=== PATIENT | female | born 1995 | race American Indian/Alaskan Native ===

== ENCOUNTER 2018-05-01 22:23 | Emergency (ER) | payer BC ==
[2018-05-01 23:07] VITALS: BP 111/78
[2018-05-02 00:33] LABS: Amorphous Crystals,Urine Few; Bilirubin,Urine NEG (Negative); Blood,Urine NEG (Negative); Color,Urine Yellow (Yellow); Mucus,Urine FEW /HPF; Protein,Urine <15 mg/dL mg/dL (Negative); Urobilinogen,Urine < 2.0 mg/dL (<2.0)
[2018-05-02 00:34] LABS: HCG Qualitative,Urine Negative (Negative)
== END 2018-05-02 02:30 | disposition left against medical advice (07) ==
LOC: ED 22:23
DX: N89.8 Other specified noninflammatory disorders of vagina (principal); Z53.21 Procedure and treatment not carried out due to patient leaving prior to being seen by health care provider
CPT/HCPCS: 81001; 81025

== ENCOUNTER 2018-11-18 18:07 | Emergency (ER) | payer SELFPAY ==
--- NOTE | 2018-11-18 18:11 | Emergency Department Report ---
Blank Doc - Documentation Documentation: 23-year-old female that presents with vaginal bleeding and pelvic cramping. This initial assessment/diagnostic orders/clinical plan/treatment(s) is/are subject to change based on patient's health status, clinical progression and re- assessment by fellow clinical providers in the ED. Further treatment and workup at subsequent clinical providers discretion. Patient/guardians urged not to elope from the ED as their condition may be serious if not clinically assessed and managed. Initial orders include: 1- Patient sent to [facility] for further evaluation and treatment 2- labs 3- UA 4- US OB
[2018-11-18 18:12] VITALS: BP 126/78
--- NOTE | 2018-11-18 19:20 | Ultrasound Report ---
ULTRASOUND OBSTETRIC INDICATION / CLINICAL INFORMATION: vaginal bleeding/pelvic pain. TECHNIQUE: Transabdominal. COMPARISON: None available. FINDINGS: GESTATIONAL SAC: No evidence of a well-formed gestational sac. YOLK SAC: None EMBRYO/FETUS: None ADNEXA: No significant abnormality. FREE FLUID: None. ADDITIONAL FINDINGS: None. IMPRESSION: 1. No evidence of an intrauterine or extrauterine gestational sac. Endometrial thickness 1.1 cm Signer Name: Vinicio Walter MD Signed: 11/18/2018 7:15 PM Workstation Name: [id number]
--- NOTE | 2018-11-18 19:20 | Ultrasound Report ---
ULTRASOUND OBSTETRIC INDICATION / CLINICAL INFORMATION: vaginal bleeding/pelvic pain. TECHNIQUE: Transabdominal. COMPARISON: None available. FINDINGS: GESTATIONAL SAC: No evidence of a well-formed gestational sac. YOLK SAC: None EMBRYO/FETUS: None ADNEXA: No significant abnormality. FREE FLUID: None. ADDITIONAL FINDINGS: None. IMPRESSION: 1. No evidence of an intrauterine or extrauterine gestational sac. Endometrial thickness 1.1 cm Signer Name: Vinicio Walter MD Signed: 11/18/2018 7:16 PM Workstation Name: [id number]
[2018-11-18 19:33] LABS: Hematocrit 40.2 % (30.3-42.9); Hemoglobin 13.6 gm/dl (10.1-14.3); Mean Corpuscular HGB Conc 34 % (30-34); Mean Corpuscular Volume 88 fl (79-97); Platelet Count 287 K/mm3 (140-440); Red Blood Count 4.56 M/mm3 (3.65-5.03); Red Cell Distribution Width 13.8 % (13.2-15.2)
--- NOTE | 2018-11-18 19:47 | Emergency Department Report ---
HPI - General Chief Complaint: Vaginal Bleeding Time Seen by Provider: 11/18/18 18:10 - HPI HPI: 23 yo with pos preg test at [place] comes to ER with vag bleed. LMP 8-18. g1 ED Past Medical Hx - Past Medical History Previous Medical History?: No - Surgical History Past Surgical History?: No - Social History Smoking Status: Never Smoker Substance Use Type: None ED Review of Systems ROS: Stated complaint: BLEEDING Other details as noted in HPI Comment: All other systems reviewed and negative Physical Exam - Physical Exam Vital Signs: Vital Signs 11/18/18 18:10 Temperature 98.3 F Pulse Rate 88 Respiratory 15 Rate Blood Pressure 126/78 [Left] O2 Sat by Pulse 98 Oximetry Physical Exam: alert and oriented abd snt no cva tenderness s1s2 lungs cta ED Course Vital Signs 11/18/18 18:10 Temperature 98.3 F Pulse Rate 88 Respiratory 15 Rate Blood Pressure 126/78 [Left] O2 Sat by Pulse 98 Oximetry ED Medical Decision Making - Lab Data Result diagrams: 11/18/18 19:02 - Radiology Data Radiology results: report reviewed, image reviewed - Medical Decision Making Lab Results 11/18/18 11/18/18 11/18/18 Range/Units 19:02 19:02 19:02 WBC 4.8 (4.5-11.0) K/mm3 RBC 4.56 (3.65-5.03) M/mm3 Hgb 13.6 (10.1-14.3) gm/dl Hct 40.2 (30.3-42.9) % MCV 88 (79-97) fl MCH 30 (28-32) pg MCHC 34 (30-34) % RDW 13.8 (13.2-15.2) % Plt Count 287 (140-440) K/mm3 Seg Neutrophils % [employer] HCG, Quant 23.91 H (0-4) mIU/mL Urine Bilirubin (Negative) Urine RBC (Auto) (0.0-6.0) /HPF U Epithel Cells (Auto) (0-13.0) /HPF Blood Type O POSITIVE 11/18/18 Range/Units 20:07 WBC (4.5-11.0) K/mm3 RBC (3.65-5.03) M/mm3 Hgb (10.1-14.3) gm/dl Hct (30.3-42.9) % MCV (79-97) fl MCH (28-32) pg MCHC (30-34) % RDW (13.2-15.2) % Plt Count (140-440) K/mm3 Seg Neutrophils % HCG, Quant (0-4) mIU/mL Urine Bilirubin Neg (Negative) Urine RBC (Auto) 14.0 (0.0-6.0) /HPF U Epithel Cells (Auto) 4.0 (0-13.0) /HPF Blood Type Vital Signs 11/18/18 18:10 Temperature 98.3 F Pulse Rate 88 Respiratory 15 Rate Blood Pressure 126/78 [Left] O2 Sat by Pulse 98 Oximetry us noted educated pt and family on dc plan of care. will follow up with obgyn in 48 hours - Differential Diagnosis ro ab Critical care attestation.: If time is entered above; I have spent that time in minutes in the direct care of this critically ill patient, excluding procedure time. ED Disposition Clinical Impression: Threatened , Vaginal bleeding, Disposition: DC-01 TO HOME OR SELFCARE Is pt being admited?: No Does the pt Need Aspirin: No Condition: Stable Instructions: Threatened Miscarriage (ED) Additional Instructions: BLOOD TYPE POSITIVE HCG LEVEL 23 PELVIC REST FOLLOW UP WITH OBGYN IN 48 HOURS TYLENOL FOR PAIN Referrals: PRIMARY CAREMD [Primary Care Provider] - 3-5 Days JAMES TIJERINA MD [Staff Physician] - 3-5 Days Time of Disposition: 20:34
[2018-11-18 20:30] LABS: Bacteria,Urine 1+ /HPF (Negative); Bilirubin,Urine NEG (Negative); Blood,Urine LG (Negative); Color,Urine Yellow (Yellow); Mucus,Urine FEW /HPF; Protein,Urine <15 mg/dL mg/dL (Negative); Urobilinogen,Urine < 2.0 mg/dL (<2.0)
[2018-11-18 20:56] LABS: Anisocytosis 1+; Basophils % (Manual) 0 % (0.0-1.8); Platelet Estimate Consistent w Auto; Total Cells Counted 100
== END 2018-11-18 20:51 | disposition home or self-care (01) ==
LOC: ED 18:07
DX: O20.0 Threatened abortion (principal); O20.8 Other hemorrhage in early pregnancy; Z3A.01 Less than 8 weeks gestation of pregnancy
CPT/HCPCS: 36415; 76801; 76817; 81001; 84702; 85007; 85025; 86900; 86901